=== PATIENT | male | born 1940 | race Caucasian/White ===

== ENCOUNTER 2019-08-11 14:40 | Emergency (ER) | payer OTHER ==
[~2019-08-11] VITALS: Ht 162.6 cm; Wt 56.7 kg
[~2019-08-11 14:40] MED LIST: ATENOLOL25 MG; ENALAPRIL MALEAT5 MG; HYDROCHLOROTH12.5 MG
[2019-08-11] MEDS ORDERED: PERCOCET 5-3251 EACH (15:45)
[2019-08-11] MEDS ORDERED: NORVASC10 MG (15:46)
[2019-08-11] MEDS ORDERED: ZESTRIL20 MG (15:46)
[2019-08-11] MEDS ORDERED: ANORO ELLIPTA1 EACH (15:46)
[2019-08-11] MEDS ORDERED: [UNRECOGNIZED DRUG - OTHER] (15:47)
[2019-08-11] MEDS ORDERED: LIPITOR20 MG (15:47)
[2019-08-11] MEDS ORDERED: SINGULAIR 10MG10 MG (15:48)
[2019-08-11] MEDS ORDERED: MELATONIN1 MG (15:48)
[2019-08-11] MEDS ORDERED: NABUMETONE500 MG (15:48)
[2019-08-11] MEDS ORDERED: TAMS0.4C (15:48)
[2019-08-11] MEDS ORDERED: ZANTAC150 MG (15:48)
[2019-08-12] MEDS ORDERED: ADVIL LIQUI-GE200 MG PO (00:21)
[2019-08-12] MEDS ORDERED: NORFLEX100MG PO (00:21)
== END 2019-08-12 00:48 | disposition home or self-care (01) ==
LOC: ER 14:40
DX: M54.6 Pain in thoracic spine (principal)

== ENCOUNTER 2019-09-11 14:51 | Emergency (ER) | payer OTHER ==
[~2019-09-11] VITALS: Ht 162.6 cm; Wt 52.6 kg
[~2019-09-11 14:51] MED LIST changes: +ADVIL LIQUI-GE200 MG PO; +ANORO ELLIPTA1 EACH; +LIPITOR20 MG; +MELATONIN1 MG; +NABUMETONE500 MG; +NORFLEX100MG PO; +NORVASC10 MG; +PERCOCET 5-3251 EACH; +SINGULAIR 10MG10 MG; +TAMS0.4C; +ZANTAC150 MG; +ZESTRIL20 MG; +[UNRECOGNIZED DRUG - OTHER]
== END 2019-09-11 17:20 | disposition home or self-care (01) ==
LOC: ER 14:51
DX: M54.5 Low back pain (principal)